=== PATIENT | male | born 1965 | race African-American/Black ===

== ENCOUNTER 2025-09-05 12:23 | Emergency (ER) | payer BC ==
[~2025-09-05] VITALS: Ht 195.6 cm; Wt 102.1 kg
[2025-09-05 12:28] VITALS: BP 162/92
[2025-09-05 13:45] VITALS: BP 155/84; TEMP 98; O2SAT 95
== END 2025-09-05 13:45 | disposition home or self-care (01) ==
LOC: ER 12:23
DX: C95.90 Leukemia, unspecified not having achieved remission (principal); F17.200 Nicotine dependence, unspecified, uncomplicated
CPT/HCPCS: A4606; A4663